=== PATIENT | male | born 1970 | race Caucasian/White ===

== ENCOUNTER 2023-01-30 11:17 | Emergency (ER) | payer MEDICARE, OTHER ==
[~2023-01-30] VITALS: Ht 177.8 cm; Wt 149.7 kg
[~2023-01-30 11:17] MED LIST: CARV3.1240 PO; DICL1GEL26 TD; FLUT1SPR5; GLYB1.257 PO; INSUINJ18 SC; LEVEMIR SC; METF-370 PO; POTA-228 PO; PREG200C19 PO; TAMS0.4C36 PO
[2023-01-30 11:56] VITALS: BP 163/99; PULSE 86; RESP 16; O2SAT 97
[2023-01-30 12:52] LABS: Urine Bacteria FEW /hpf (None Seen); Urine Blood 3+ /uL (Negative); Urine Clarity CLOUDY (Clear); Urine Mucus FEW (None Seen); Urine Protein, UAD 2+ (Negative); Urine Specific Gravity 1.019 (1.001-1.035); Urine WBC 995 /hpf (0 - 3); Urine WBC Clumps PRESENT /hpf (None Seen)
[2023-01-30 12:59] LABS: Basophils # (auto) 0 10 ^3/uL (0-0.2); Basophils % (auto) 0.5 % (0.0-2.0); Eosinophils # (auto) 0 10 ^3/uL (0-0.8); Eosinophils % (auto) 0.6 % (0.0-7.0); Hematocrit 41.5 % (41.0-53.0); Hemoglobin 13.7 g/dL (13.5-17.5); Lymphocytes # (auto) 0.8 10 ^3/uL (0.4-5.4); Lymphocytes % (auto) 15.8 % (10.0-50.0); Mean Corpuscular Hemoglobin 27.8 pg (28.0-32.0); Mean Corpuscular Hgb Conc. 33.1 g/dL (32.0-36.0); Mean Corpuscular Volume 83.9 fL (80.0-100.0); Monocytes # (auto) 0.4 10 ^3/uL (0-1.3); Monocytes % (auto) 9.2 % (0.0-12.0); Neutrophils # (auto) 3.6 10 ^3/uL (1.6-8.6); Neutrophils % (auto) 73.9 % (37.0-80.0); Nucleated Red Blood Cells % 0.3 %; Red Blood Cells 4.94 10^6/uL (4.5-5.90); Red Cell Distribution Width 14.5 % (11.8-14.3); White Blood Cell 4.8 10^3/uL (4.4-10.8)
[2023-01-30 13:01] LABS: Urine Color Amber (Yellow)
[2023-01-30 13:13] LABS: Alanine Aminotransferase 42 U/L (7-40); Alkaline Phosphatase 94 U/L (46-116); Anion Gap 6 (5-15); Aspartate Aminotransferase 29 U/L (13-40); BUN/Creatinine Ratio 18.6 (10.0-20.0); Blood Urea Nitrogen 11 mg/dL (9-23); Calcium 8.6 mg/dL (8.7-10.4); Carbon Dioxide 24 mmol/L (20-30); Chloride 112 mmol/L (98-107); Glucose 115 mg/dL (74-106); Potassium 4.1 mmol/L (3.5-5.1); Sodium 142 mmol/L (136-145)
[2023-01-30 13:14] LABS: Total Protein 6.2 g/dL (5.7-8.2)
[2023-01-30 13:20] LABS: INR 1.04 (0.9-1.15); Partial Thromboplastin Time 30.3 SEC (24.5-34.5); Prothrombin Time 10.9 sec (9.3-11.8)
[2023-01-30] MEDS ORDERED: AUG875T PO (14:54)
[2023-01-30] MEDS ORDERED: cefTRIAXone 1GM/50ML D5W 50 ML IV ONE (15:00)
== END 2023-01-30 19:59 | disposition left against medical advice (07) ==
LOC: ER 11:17
DX: N30.91 Cystitis, unspecified with hematuria (principal); R93.89 Abnormal findings on diagnostic imaging of other specified body structures; E11.9 Type 2 diabetes mellitus without complications; E78.5 Hyperlipidemia, unspecified; Z90.49 Acquired absence of other specified parts of digestive tract; Z79.01 Long term (current) use of anticoagulants; Z88.0 Allergy status to penicillin
CPT/HCPCS: 36415; 71045; 74176; 80053; 81001; 83605; 84484; 85025; 85610; 85730

== ENCOUNTER 2023-04-18 12:23 | Emergency (ER) | payer OTHER ==
[~2023-04-18] VITALS: Ht 177.8 cm; Wt 147.8 kg
[~2023-04-18 12:23] MED LIST changes: +AUG875T PO
[2023-04-18 14:55] VITALS: BP 150/83; PULSE 75; RESP 20; TEMP 98; O2SAT 97
[2023-04-18] MEDS ORDERED: BUPR8SUB18 SL (15:08)
== END 2023-04-18 15:21 | disposition home or self-care (01) ==
LOC: ER 12:23
DX: M79.662 Pain in left lower leg (principal); M79.661 Pain in right lower leg; G89.29 Other chronic pain; E11.9 Type 2 diabetes mellitus without complications; I50.9 Heart failure, unspecified; E78.5 Hyperlipidemia, unspecified; Z76.0 Encounter for issue of repeat prescription; Z98.890 Other specified postprocedural states; Z88.8 Allergy status to other drugs, medicaments and biological substances; Z79.899 Other long term (current) drug therapy

== ENCOUNTER 2023-11-05 15:52 | Emergency (ER) | payer OTHER ==
[~2023-11-05] VITALS: Ht 172.7 cm; Wt 115.0 kg
[~2023-11-05 15:52] MED LIST changes: +BUPR8SUB18 SL; -TAMS0.4C36 PO; +TAMS0.4C39 PO
[2023-11-05 17:27] LABS: Basophils # (auto) 0 10 ^3/uL (0-0.2); Basophils % (auto) 0.5 % (0.0-2.0); Eosinophils # (auto) 0 10 ^3/uL (0-0.8); Hematocrit 47.8 % (41.0-53.0); Hemoglobin 16.4 g/dL (13.5-17.5); Lymphocytes % (auto) 12.6 % (10.0-50.0); Mean Corpuscular Hemoglobin 28.8 pg (28.0-32.0); Mean Corpuscular Hgb Conc. 34.3 g/dL (32.0-36.0); Mean Corpuscular Volume 83.8 fL (80.0-100.0); Monocytes # (auto) 0.5 10 ^3/uL (0-1.3); Monocytes % (auto) 6.7 % (0.0-12.0); Neutrophils # (auto) 6.3 10 ^3/uL (1.6-8.6); Neutrophils % (auto) 80.2 % (37.0-80.0); Nucleated Red Blood Cells % 0.1 %; Platelet Count (auto) 148 10^3/uL (140-450); Red Cell Distribution Width 15.6 % (11.8-14.3); White Blood Cell 7.8 10^3/uL (4.4-10.8)
[2023-11-05 17:47] LABS: Alanine Aminotransferase 43 U/L (7-40); Albumin 4.3 g/dL (3.2-4.8); Alkaline Phosphatase 122 U/L (46-116); Anion Gap 14 (5-15); Aspartate Aminotransferase 33 U/L (13-40); BUN/Creatinine Ratio 18.5 (10.0-20.0); Bilirubin, Total 2.1 mg/dL (0.2-1.0); Blood Urea Nitrogen 12 mg/dL (9-23); Calcium 9.3 mg/dL (8.7-10.4); Carbon Dioxide 19 mmol/L (20-30); Chloride 106 mmol/L (98-107); Glucose 155 mg/dL (74-106); Potassium 3.1 mmol/L (3.5-5.1); Sodium 139 mmol/L (136-145)
[2023-11-05 22:00] VITALS: BP 159/86; PULSE 100; RESP 16; TEMP 98.1; O2SAT 97
== END 2023-11-05 22:43 | disposition home or self-care (01) ==
LOC: EDBD 15:52 → ER 15:52
DX: R20.2 Paresthesia of skin (principal); R42 Dizziness and giddiness; E11.9 Type 2 diabetes mellitus without complications; I50.9 Heart failure, unspecified; E78.5 Hyperlipidemia, unspecified; Z90.49 Acquired absence of other specified parts of digestive tract
CPT/HCPCS: 36415; 70450; 71045; 80053; 84484; 85025; 93005